=== PATIENT | female | born 1990 | race African-American/Black ===

== ENCOUNTER 2018-10-25 19:26 | Emergency (ER) | payer OTHER ==
[~2018-10-25] VITALS: Ht 167.6 cm; Wt 77.1 kg
[~2018-10-25 19:26] MED LIST: CLARITIN10 M2 PO; NORCO 5-325 TA1 EACH PO; NORFLEX100 MG PO
[2018-10-25 20:25] VITALS: BP 119/70
== END 2018-10-25 20:53 | disposition short-term general hospital (02) ==
LOC: ER 19:26
DX: O60.23X1 Term delivery with preterm labor, third trimester, fetus 1 (principal); Z3A.40 40 weeks gestation of pregnancy